=== PATIENT | female | born 1965 | race Caucasian/White ===

== ENCOUNTER 2016-06-21 13:00 | Outpatient (RCR) | payer MEDICARE, MEDICAID | END 2016-06-23 | disposition home or self-care (01) | LOC: MKS.ESL.PT | DX: I69.851 Hemiplegia and hemiparesis following other cerebrovascular disease affecting right dominant side (principal) | CPT/HCPCS: G0283-GP; G8978-GP; G8979-GP; G8984-GO; G8985-GO ==

== ENCOUNTER 2016-08-21 15:15 | Outpatient (RCR) | payer MEDICARE, MEDICAID | END 2016-09-22 | disposition home or self-care (01) | LOC: MKS.ESL.OT | DX: G45.8 Other transient cerebral ischemic attacks and related syndromes (principal) | CPT/HCPCS: G8978-GP; G8979-GP ==

== ENCOUNTER → 2016-09-05 | Outpatient (CLI) | payer MEDICARE, MEDICAID | LOC: COL.PUL 07:38 | DX: R06.2 Wheezing (principal); R05 Cough ==

== ENCOUNTER → 2017-02-12 | Outpatient (CLI) | payer MEDICARE, MEDICAID | LOC: MC.RAD 01-29 08:40 | DX: Z12.31 Encounter for screening mammogram for malignant neoplasm of breast (principal); N63 Unspecified lump in breast ==

== ENCOUNTER → 2017-03-18 | Outpatient (CLI) | payer MEDICARE | LOC: COL.PUL 12:47 | DX: R06.02 Shortness of breath (principal) | CPT/HCPCS: J7674 ==

== ENCOUNTER → 2018-04-09 | Outpatient (CLI) | payer MEDICARE | LOC: MC.RAD 03-10 07:00 | DX: Z12.31 Encounter for screening mammogram for malignant neoplasm of breast (principal) ==

== ENCOUNTER → 2018-12-31 | Outpatient (CLI) | payer MEDICARE | LOC: COL.RAD 12-15 13:30 | DX: J45.909 Unspecified asthma, uncomplicated (principal); R91.1 Solitary pulmonary nodule ==

== ENCOUNTER → 2019-05-07 | Outpatient (CLI) | payer MEDICARE | LOC: MC.RAD 07:05 | DX: Z12.31 Encounter for screening mammogram for malignant neoplasm of breast (principal); N63.10 Unspecified lump in the right breast, unspecified quadrant; N63.20 Unspecified lump in the left breast, unspecified quadrant ==

== ENCOUNTER → 2020-06-09 | Outpatient (CLI) | payer MEDICARE | LOC: MC.RAD 05-23 14:30 | DX: Z12.31 Encounter for screening mammogram for malignant neoplasm of breast (principal); N64.9 Disorder of breast, unspecified ==

== ENCOUNTER → 2020-07-28 | Outpatient (CLI) | payer MEDICARE | LOC: COL.VAS | DX: M79.89 Other specified soft tissue disorders (principal) ==

== ENCOUNTER → 2020-08-10 | Outpatient (CLI) | payer MEDICARE | LOC: COL.RAD 12:43 | DX: M18.11 Unilateral primary osteoarthritis of first carpometacarpal joint, right hand (principal) | CPT/HCPCS: J3301; Q9967 ==

== ENCOUNTER → 2020-09-20 | Outpatient (CLI) | payer MEDICARE | LOC: COL.RAD 10:02 | DX: M19.041 Primary osteoarthritis, right hand (principal) | CPT/HCPCS: J3301; Q9967 ==

== ENCOUNTER → 2021-06-21 | Outpatient (CLI) | payer MEDICARE | LOC: MC.RAD 07:00 | DX: Z12.31 Encounter for screening mammogram for malignant neoplasm of breast (principal) ==

== ENCOUNTER 2022-04-05 06:01 | Day surgery (SDC) | payer MEDICARE ==
[~2022-04-05] VITALS: Ht 162.6 cm; Wt 50.8 kg
[2022-04-05 06:35] VITALS: BP 126/78; PULSE 53; TEMP 96.9
[2022-04-05] MEDS ORDERED: PROVIGIL200 MG PO (07:06)
[2022-04-05] MEDS ORDERED: DILANTIN 100MG100 MG PO (07:06)
[2022-04-05] MEDS ORDERED: FLONASE NASAL S16 GM NS (07:07)
[2022-04-05] MEDS ORDERED: PAXIL 20MG20 MG PO (07:08)
[2022-04-05] MEDS ORDERED: ASPIRIN 81M81 MG/TA2 PO (07:08)
[2022-04-05] MEDS ORDERED: EPA FISH OIL1 SGL PO (07:09)
[2022-04-05] MEDS ORDERED: PROAIR HFA0.09 MG/AC IH (07:09)
[2022-04-05] MEDS ORDERED: DUO-KAPS1 CAP PO (07:10)
[2022-04-05] MEDS ORDERED: STIOLTO RESPIMAT4 GM IH (07:10)
[2022-04-05] MEDS ORDERED: ULTRAM 50MG TAB50 MG PO (07:11)
[2022-04-05 07:25] VITALS: BP 102/57; PULSE 54; TEMP 96.6
[2022-04-05 07:40] VITALS: BP 104/64; PULSE 52
[2022-04-05 07:55] VITALS: BP 98/42; PULSE 50
--- NOTE | 2022-04-05 08:08 | NUR ---
0725 RETURNS TO ROOM 1 PER CART. ALERT. AMBULATES TO RECLINER WITH STAND BY ASSIST. VITAL SIGNS OBTAINED. DENIES NAUSEA OR ABD PAIN. IN ROOM. CALL LIGHT AT SIDE. 0740 TOLERATES PO JUICE AND MUFFIN WITHOUT NAUSEA. 0744 DISCHARGE INSTRUCTIONS REVIEWED. COPY PLACED IN DISCHARGE FOLDER. 0754 DR RICH HERE TO VISIT WITH PATIENT. 0800 DRESSES SELF. 0808 DISCHARGED PER WHEEL CHAIR TO VEHICLE DRIVEN BY
== END 2022-04-05 08:08 | disposition home or self-care (01) ==
LOC: SDCO 06:01
DX: Z12.11 Encounter for screening for malignant neoplasm of colon (principal); K64.1 Second degree hemorrhoids; Z80.0 Family history of malignant neoplasm of digestive organs
CPT/HCPCS: J2704

== ENCOUNTER → 2023-08-08 | Outpatient (CLI) | payer MEDICARE ==
[~2023-08-08] MED LIST: ASPIRIN 81M81 MG/TA2 PO; DILANTIN 100MG100 MG PO; DUO-KAPS1 CAP PO; EPA FISH OIL1 SGL PO; FLONASE NASAL S16 GM NS; PAXIL 20MG20 MG PO; PROAIR HFA0.09 MG/AC IH; PROVIGIL200 MG PO; STIOLTO RESPIMAT4 GM IH; ULTRAM 50MG TAB50 MG PO
== END ==
LOC: MC.RAD 12:35
DX: Z12.31 Encounter for screening mammogram for malignant neoplasm of breast (principal)